=== PATIENT | male | born 1940 | race Caucasian/White ===

== ENCOUNTER 2018-12-03 14:12 | Observation (INO) | payer MEDICARE, OTHER ==
[2018-12-03] MEDS ORDERED: Sodium Chloride 0.9% 500 ML 500 ML IV SCH (15:30)
[2018-12-03 16:24] LABS: ABO TYPING O; Antibody Screen NEGATIVE (NEGATIVE); RH TYPING POSITIVE
[2018-12-03] MEDS ORDERED: TYLENOL 325 MG PO PRN (16:45)
[2018-12-03] MEDS ORDERED: Colace 100 MG PO PRN (16:45)
[2018-12-03] MEDS ORDERED: Sodium Chloride 0.9% 10 ML FLUSH Syringe IV PRN (16:45)
[2018-12-03] MEDS ORDERED: Tessalon Perles 100 MG PO PRN ×2 (18:00→18:10)
[2018-12-03] MEDS ORDERED: Ambien 5 MG Tablet PO PRN (21:07)
[2018-12-03] MEDS ORDERED: HYTRIN 1 MG PO SCH (22:00)
[2018-12-03] MEDS ORDERED: Protonix 40MG Tablet PO SCH (22:00)
[2018-12-03] MEDS: Sodium Chloride 0.9% 10 ML FLUSH Syringe IV SCH (23:00)
[2018-12-04 00:49] LABS: Hematocrit 26.9 % (42-50); Hemoglobin 8.4 gm/dl (12.5-18.0)
[2018-12-04] MEDS: Sodium Chloride 0.9% 10 ML FLUSH Syringe IV SCH (06:52)
[2018-12-04 07:28] VITALS: BP 120/67; PULSE 88; O2SAT 96
--- NOTE | 2018-12-04 08:16 | CONS ---
CONSULT DATE: 12/03/2018 REASON FOR CONSULT: Anemia and thrombocytopenia unclear etiology. HISTORY: Elkin Maravilla is a 78 year-old white male with history of benign essential hypertension on medications. The patient had been doing fine until recently. He started feeling tired, weak and getting worse for the last few months. The patient had a blood test done today on 12/03/2018 with white blood cell 9.3, hemoglobin 7, MCV 95 and PLT count 55,000. Absolute neutrophil count is 3.17, lymphocytes 55%, neutrophils 34%, monocytes 10%, nucleated red blood cells 2%, atypical lymphocytes 1%. Sodium 136, potassium 3.9, BUN 19, creatinine 0.9, calcium 8.9, glucose 102, total iron 181. Iron saturation 65%. AST 24, ALT 16, alkaline phosphatase 55. Albumin 3.9, total protein 7.3. Vitamin B12 400. Folic acid 13. TSH 1.3. The patient had a chest x-ray show nonacute hyperinflated chest. The patient was brought to the hospital for blood transfusion. REVIEW OF SYSTEMS: The patient is tired and weak. He denies any nausea, vomiting, diarrhea, constipation, urinary problem, bleeding, fever, chills, sore throat, headache, blurring of vision. The patient denies any black stools. The patient denies any weight loss. No personal history of cancer in the past. PAST MEDICAL HISTORY: Hypertension. Benign essential hypertension. Hypercholesterolemia. PAST SURGICAL HISTORY: Appendectomy. ALLERGIES: NKDA. FAMILY HISTORY: No history of cancer in the family. Noncontributory at this time. PHYSICAL EXAMINATION: Well developed, well nourished, alert, awake, oriented, pleasant, cooperative, not in distress. SKIN: No cyanosis. No clubbing. No pallor. NECK: Supple. No raise in JVD. LUNGS: Bilaterally clear. HEART: Normal heart sounds. ABDOMEN: Soft, bowel sounds present. EXTREMITIES: No edema. PRICING CLERK: Nonfocal. IMPRESSION: 1) Normocytic anemia. Hemoglobin 7 gm. 2) Thrombocytopenia. Platelets around 50,000. 3) Normal iron profile, B12 and TSH levels. PLAN: The patient has never had a colonoscopy in the past. I discussed with the patient about the anemia and thrombocytopenia, the differential diagnosis including whether the patient has any hemolytic anemia or chronic idiopathic thrombocytopenic purpura combination. The patient's bone marrow pathology including myelodysplastic syndrome and other possibilities including leukemia were discussed. I discussed about the further management including bone marrow aspiration and biopsy to rule out underlying bone marrow pathology. At this time I agree with blood transfusion. Once the patient is stabilized and the patient comes to our office as outpatient I will consider doing the bone marrow aspiration and biopsy. The patient and the patient's understood and their questions were answered. I agree with the blood transfusion. Follow up with me in my office if possible tomorrow and I will consider doing the bone marrow aspiration and biopsy. Thank you very much, Dr. Mendiola, for allowing me to take care of your patient. If you have any questions do not hesitate to call me.
--- NOTE | 2018-12-04 08:26 | PCM.DCORD ---
- Discharge Discharge Date: 12/04/18 Disposition: Home, Self-Care Condition: Fair Prescriptions: Continue levoFLOXacin [Levofloxacin] 500 mg PO DAILY Terazosin HCl 1 mg [Hytrin 1 mg] 2 mg PO HS Omeprazole 20 mg PO HS Benzonatate [Tessalon Perle] 100 - 200 mg PO TIDPRN PRN PRN Reason: Cough Discontinued Benazepril/Hydrochlorothiazide [Benazepril-Hctz 20-12.5 mg Tab] 1 each PO HS Additional Instructions: Go straight to Dr. Lopez's office today for bone marrow biopsy. Return to clinic or ER if bleeding, shortness of breath or any other concerns. Follow up with: IVAN RINALDI [Primary Care Provider] - 1 Week KARIN LOPEZ [COURTESY STAFF] - 1 Week
[2018-12-04] MEDS ORDERED: Levofloxacin 500 MG Tablet PO SCH (10:00)
--- NOTE | 2018-12-04 10:26 | SSS ---
ADMISSION DIAGNOSES: 1) Anemia. 2) Thrombocytopenia. 3) Dyspnea. 4) Cough. DISCHARGE DIAGNOSES: 1) ANEMIA. 2) THROMBOCYTOPENIA. 3) DYSPNEA. 4) COUGH. 5) HYPERTENSION. HISTORY OF PRESENT ILLNESS: This is a 78 year-old patient who presented to my office on 12/03/2018. It was the first time that I had ever seen him. He reported that he has been sick for approximately six weeks. He was seen at [facility] on 10/20/2018, 11/06/2018, 11/18/2018 and 11/26/2018. He reports that on one of those visits he had some sores in his nose, boils and a sore throat as well as a cold and a fever. He has had a deep cough. He states that he had to sleep sitting up at night due to the cough. He has felt more weak. He has been short of breath with exertion. His reports he had been trying to sell his house and move within 30 days and this had run him down. He had been on Augmentin that was started on 11/06/2018. He still feels like he has an infection in the right cheek bone or perhaps a tooth is infected. He had a fever up to 101F in the past five days. He had a history of leukopenia, anemia and thrombocytopenia on a CBC April 2018. They asked him to have a colonoscopy at that time to screen for colon cancer but he had not followed through with this. He reports he has not had much of an appetite but that has been getting better. This morning after receiving 2 units of blood he states that he does feel a little better. He has only ambulated to the bathroom. In the clinic I had ordered STAT blood work and his hemoglobin came back at 7 and so I called him and made him a direct admission for 2 units of packed red blood cells. Licensed Appraiser, Dr. Torsten Lopez was able to see him the same day of his admission and wanted to have him receive the 2 units of packed red blood cells and be discharged as soon as possible this morning to go to his office for a bone marrow biopsy today and the patient is agreeable to this plan. REVIEW OF SYSTEMS: The patient states his face has felt puffy and that has improved today. He felt fatigued and states it has been hard to hold his eyes open. He reports not sleeping well due to cough and nothing seems to help with the cough. PAST MEDICAL HISTORY: Hypertension, benign prostatic hypertrophy, gastroesophageal reflux disease. PAST SURGICAL HISTORY: Appendectomy. MEDICATIONS: Terazosin 2 mg p.o. q.h.s., levofloxacin 500 mg p daily, omeprazole 20 mg p.o. q.h.s., benzonatate 100 to 200 mg every four hours as needed. ALLERGIES: NKDA. SOCIAL HISTORY: He is engaged to be . A former smoker. He works as a peña and a business analytics specialist. FAMILY HISTORY: Noncontributory. PHYSICAL EXAMINATION: VITAL SIGNS: Temperature current 98.9F, temperature max 100.3F, heart rate 82 to 89, respiratory rate 17 to 18, blood pressure 120/65. Oxygen saturation 95 to 96% on room air. GENERAL: The patient is a pleasant talkative man sitting up in bed in no acute distress. His fianc is at the bedside. CVS: His heart has a regular rate and rhythm. No murmurs, gallops or rubs. CHEST: Clear to auscultation bilaterally. No crackles or wheezes. He has a cough. HEENT: He states he is no longer tender over his right sinus. ABDOMEN: Soft, nontender, nondistended with normal bowel sounds. EXTREMITIES: No clubbing, cyanosis or edema. SKIN: Warm, dry and intact. LABORATORY DATA AND TESTS: In the clinic his hemoglobin was 7.0. His PLT count was also low at 55,000 with 34% neutrophils, 55% lymphocytes, 10% monocytes, 2 nucleated red blood cells, 1 atypical lymphocyte. The pathologist also reviewed the slide. Please see their report. Sodium was 136 otherwise BMP was normal. TSH was normal. Chest x-ray was clear with no acute findings. ASSESSMENT AND PLAN: 1) ANEMIA: The patient was transfused with 2 units of packed red blood cells. Again, Dr. Lopez saw him and he is being discharged today to follow up in his clinic for bone marrow biopsy. 2) THROMBOCYTOPENIA: Follow up with Dr. Lopez for bone marrow biopsy and there are no signs of bleeding. 3) DYSPNEA: Hopefully this will improve with his transfusion. His chest x-ray is clear. 4) COUGH: Will continue with [id number] cough medicine. 5) HYPERTENSION: I held his benazepril during this hospitalization. I am going to have him hold this as an outpatient. FOLLOW UP: He is to follow up with Dr. Lopez today and myself next week.
== END 2018-12-04 09:22 | disposition home or self-care (01) ==
LOC: MED SURG 14:33
PROVIDERS: ADMIT Internal Medicine; ATTEND Internal Medicine
DX: D64.9 Anemia, unspecified (principal); D69.6 Thrombocytopenia, unspecified; R06.00 Dyspnea, unspecified; I10 Essential (primary) hypertension; R53.83 Other fatigue; R05 Cough; Z79.899 Other long term (current) drug therapy
CPT/HCPCS: 36415; 36430; 82272; 85014; 85018; 86850; 86900; 86901; 86922; G0378; P9016; 71046; 80053; 84443; 85025; A9270-GY

== ENCOUNTER 2019-02-13 03:19 | Emergency (ER) | payer MEDICARE, OTHER ==
[2019-02-13 03:33] VITALS: O2SAT 98
[2019-02-13] MEDS ORDERED: Zofran 4 MG/2 ML VIAL IV ONE (03:50)
[2019-02-13] MEDS ORDERED: Catapres 0.1 MG PO ONE (03:50)
[2019-02-13] MEDS ORDERED: Zofran 4 MG/2 ML VIAL ONE (03:55)
[2019-02-13] MEDS ORDERED: Sodium Chloride 0.9% 1000 ML 1,000 ML ONE (03:56)
[2019-02-13] MEDS ORDERED: Catapres 0.1 MG ONE (03:56)
--- NOTE | 2019-02-13 03:58 | ERPHSYRPT ---
- History of Present Illness Time Seen by Provider: 02/13/19 03:46 Source: patient, other (spouse) Exam Limitations: no limitations Patient Subjective Stated Complaint: woke up thinking his nose was running but it was bleeding. 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 has had low platelet count and was told if he starts bleeding to come to the hospital. had 2 units of blood and platelets on saturday, was getting another dose of platelets saturday but had a reaction so didn't finish it. Triage Nursing Assessment: pt amb to tx room without diff. washcloth to nose. left nare with bright red blood noted constant slow ooze. states feels like it is running down back of throat. speech clear, no c/o pain or disc. no injury. spitting out bright red blood from back of throat. Physician History: Pt woke up with nosebleed at 3 AM, denies recent surgery or injury, no vomiting , headaches, fever, or SOB, no chest pain, he has mild cough. He has been treated for AML, given chemotherapy the last time 9 days ago (completed a 7 days course). Timing/Duration: abrupt onset Severity: severe ENT Location: nose Prearrival Treatment: no prearrival treatment Modifying Factors: Improves With: nothing Associated Symptoms: cough Allergies/Adverse Reactions: No Known Drug Allergies Allergy (Unverified 12/03/18 15:28) Home Medications: Omeprazole 20 mg PO HS 12/03/18 [History] Ciprofloxacin [Cipro 500 MG] 500 mg PO BID 02/13/19 [History] Hx Tetanus, Diphtheria Vaccination/Date Given: Yes Hx Influenza Vaccination/Date Given: No Hx Pneumococcal Vaccination/Date Given: No Immunizations Up to Date: Yes - Review of Systems Constitutional: No Symptoms Eyes: No Symptoms Ears, Nose, & Throat: Epistaxis Respiratory: Cough Cardiac: No Symptoms Abdominal/Gastrointestinal: Nausea Genitourinary Symptoms: No Symptoms Musculoskeletal: No Symptoms Skin: No Symptoms Neurological: No Symptoms All Other Systems: Reviewed and Negative - Past Medical History Pertinent Past Medical History: No Neurological History: No Pertinent History ENT History: No Pertinent History Cardiac History: Hypertension Respiratory History: No Pertinent History Endocrine Medical History: No Pertinent History Musculoskeletal History: No Pertinent History GI Medical History: GERD History: No Pertinent History Psycho-Social History: No Pertinent History Male Reproductive Disorders: No Pertinent History Other Medical History: acute myeloid leukemia - Past Surgical History Past Surgical History: Yes Neuro Surgical History: No Pertinent History Cardiac: No Pertinent History Respiratory: No Pertinent History Gastrointestinal: Appendectomy Genitourinary: No Pertinent History Musculoskeletal: No Pertinent History Male Surgical History: No Pertinent History - Social History Smoking Status: Former smoker Drug Use: none Patient Lives Alone: No - Nursing Vital Signs Nursing Vital Signs: Initial Vital Signs Temperature 98.2 F 02/13/19 03:19 Pulse Rate 77 02/13/19 03:19 Respiratory Rate 18 02/13/19 03:19 Blood Pressure 154/91 02/13/19 03:19 O2 Sat by Pulse Oximetry 98 02/13/19 03:19 Pain Scale Pain Intensity 0 - Physical Exam General Appearance: no apparent distress Eye Exam: bilateral eye: normal inspection Nasal Exam: active bleeding (from left nares) Throat Exam: pharynx normal (mild blood smear on the posterior pharyneal wall) Neck Exam: normal inspection, non-tender, supple, trachea midline, No JVD, No lymphadenopathy (R), No lymphadenopathy (L) Cardiovascular/Respiratory Exam: chest non-tender, normal breath sounds, regular rate/rhythm, heart sounds normal, no respiratory distress Abdominal Exam: non-tender, soft Neurologic Exam: alert, oriented x 3, cooperative, normal mood/affect Skin Exam: normal color, warm, dry, No rash, No petechiae SpO2 Interpretation: normal SpO2: 98 O2 Delivery: Room Air Procedures - Additional Procedures Progress: Nasal packing: after cleared nasal passages with blowing, 2 % Lidocain gel injected, and 5.5 cm Rhino racket inserted without difficulty, inflated with 10 ml air, bleeding significantly slowed down, no anterior bleeding noted. - Course Nursing assessment & vital signs reviewed: Yes EKG Interpreted by Me: RATE (83/min), Sinus Rhythm, NORMAL AXIS, NORMAL INTERVALS, NORMAL QRS, Non-specific ST Changes Ordered Tests: Active Orders 24 hr Category Date Time Status Apply Nose Clip STAT Care 02/13/19 03:50 Active EKG-ER Only STAT Care 02/13/19 03:53 Active Epistaxis Set Up STAT Care 02/13/19 03:50 Active IV Insertion STAT Care 02/13/19 03:50 Active Re-Check Vital Signs STAT Care 02/13/19 03:50 Active CBC W DIFF Stat Lab 02/13/19 04:08 Completed CBC W DIFF Stat Lab 02/13/19 06:10 Received CMP Stat Lab 02/13/19 04:08 Completed Manual Differential NC Stat Lab 02/13/19 04:08 Completed PROTIME WITH INR Stat Lab 02/13/19 04:08 Completed PTT Stat Lab 02/13/19 04:08 Completed Medication Summary Generic Name Dose Route Start Last Admin Trade Name Freq PRN Reason Stop Dose Admin Sodium Chloride 1,000 mls @ 100 mls/hr 02/13/19 04:00 02/13/19 04:09 Sodium Chloride 0.9% 1000 Ml IV 03/15/19 03:59 100 mls/hr .Q10H EDD Administration Discontinued Medications Generic Name Dose Route Start Last Admin Trade Name Freq PRN Reason Stop Dose Admin Clonidine 0.1 mg 02/13/19 03:50 02/13/19 04:11 Catapres 0.1 Mg PO 02/13/19 03:51 0.1 mg STAT ONE Administration Clonidine Confirm 02/13/19 03:56 Catapres 0.1 Mg Administered 02/13/19 03:57 Dose 0.1 mg .ROUTE .STK-MED ONE Lidocaine HCl Confirm 02/13/19 04:12 Xylocaine 2% Uro-Jet Administered 02/13/19 04:13 Dose 200 mg .ROUTE .STK-MED ONE Ondansetron HCl 4 mg 02/13/19 03:50 02/13/19 04:10 Zofran 4 Mg/2 Ml Vial IV 02/13/19 03:51 4 mg STAT ONE Administration Ondansetron HCl Confirm 02/13/19 03:55 Zofran 4 Mg/2 Ml Vial Administered 02/13/19 03:56 Dose 4 mg .ROUTE .STK-MED ONE Lab/Rad Data: Laboratory Result Diagrams 02/13/19 04:08 02/13/19 04:08 Laboratory Results 02/13/19 02/13/19 02/13/19 Range/Units 04:08 04:08 04:08 WBC 0.6 L* (4.0-10.5) K/mm3 RBC 2.51 L (4.1-5.6) M/mm3 Hgb 7.8 L (12.5-18.0) gm/dl Hct 24.0 L (42-50) % MCV 95.6 (78-100) fl MCH 31.0 (26-32) pg MCHC 32.5 (32-36) g/dl RDW 18.7 H (11.5-14.0) % Plt Count 5 L* (150-450) K/mm3 Absolute Granulocytes 0.10 L (1.4-6.9) Segmented Neutrophils 15 L (36.-66.) % Band Neutrophils 1 (0.0-2.0) % Lymphocytes (Manual) 82 H (24-44) % Monocytes (Manual) 2 (0.0-12.0) % Nucleated RBCs 2 % Platelet Estimate DECREASED (NORMAL) RBC Morphology ABNORMAL Poikilocytosis 1+ Tear Drop Cells 1+ Ovalocytes 1+ PT 14.3 H (8.83-12.87) SECONDS INR 1.23 (0.8-3.0) APTT 27.5 (24.1-36.1) SECONDS Sodium 140 (137-145) mmol/L Potassium 4.2 (3.5-5.1) mmol/L Chloride 105 (98-107) mmol/L Carbon Dioxide 26 (22-30) mmol/L Anion Gap 12.6 (5-15) MEQ/L BUN 17 (9-20) mg/dL Creatinine 0.73 (0.66-1.25) mg/dL Estimated GFR > 60.0 ML/MIN Glucose 107 H (74-106) mg/dL Calcium 9.0 (8.4-10.2) mg/dL Total Bilirubin 1.70 H (0.2-1.3) mg/dL AST 26 (17-59) U/L ALT 14 (0-50) U/L Alkaline Phosphatase 70 (38-126) U/L Serum Total Protein 6.7 (6.3-8.2) g/dL Albumin 3.7 (3.5-5.0) g/dL - Progress Progress: unchanged, improved Progress Note: 02/13/19 06:29 Platelets: 5, WBC: 0.6, 5.5 cm Rapid Rhino inserted to left nostril, bleeding slowed significant, no anterior bleeding, he still spits of a little blood, ( about 10-15 ml in 1 hour) he is alert and oriented x4, airways are intact, not swallowing blood, started IV saline, given Zofran IV, and Clonidine 0.1 mg PO, we do not have Platelet transfusion available, called [facility] ( Dr Lopez. pt's oncologist) unable to reach, also they do not have ENT surgeon available, could not accept transfer. We called Dr Luna in [facility], discussed his results and current condition, he accepted patient for further treatment, and platelet transfusion. Patient and his informed, they agreed, understood all risks and benefits of his transfer, he has been hemodynamically stable, (BP:125/75,pulse:74/min, O2 sat: 97 % on RA) Discussed with Dr.: Other (DR Luna ED physician in [facility]) Counseled pt/family regarding: lab results, diagnosis - Departure Departure Disposition: Transfer (to [facility] ED) Clinical Impression: Epistaxis, Thrombocytopenia Anemia Qualifiers: Anemia type: other cause Other causes of anemia: other cause, not classified Qualified Code(s): D64.89 - Other specified anemias Condition: Stable Critical Care Time: No Referrals: IVAN RINALDI [Primary Care Provider] - Instructions: Nosebleeds (DC)
[2019-02-13] MEDS ORDERED: Sodium Chloride 0.9% 1000 ML 1,000 ML IV SCH (04:00)
[2019-02-13 04:12] LABS: Hemoglobin 7.8 gm/dl (12.5-18.0); Mean Cell Volume 95.6 fl (78-100); Mean Corpuscular Hgb Concent. 32.5 g/dl (32-36); Red Blood Count 2.51 M/mm3 (4.1-5.6); Red Cell Distribution Width 18.7 % (11.5-14.0)
[2019-02-13] MEDS ORDERED: XYLOCAINE 2% Uro-Jet ONE (04:12)
[2019-02-13 04:18] LABS: White Blood Count 0.6 K/mm3 (4.0-10.5)
[2019-02-13 04:19] LABS: Platelet Count 5 K/mm3 (150-450)
[2019-02-13 04:29] LABS: ALBUMIN 3.7 g/dL (3.5-5.0); ALKALINE PHOSPHATASE 70 U/L (38-126); ANION GAP 12.6 MEQ/L (5-15); BLOOD UREA NITROGEN 17 mg/dL (9-20); CHLORIDE 105 mmol/L (98-107); Carbon Dioxide 26 mmol/L (22-30); Creatinine 1 0.73 mg/dL (0.66-1.25); Glucose 107 mg/dL (74-106); INR 1.23 (0.8-3.0); PROTIME 14.3 SECONDS (8.83-12.87); Potassium 4.2 mmol/L (3.5-5.1); SGOT/AST 26 U/L (17-59); SGPT/ALT 14 U/L (0-50); SODIUM 140 mmol/L (137-145); Total Protein 6.7 g/dL (6.3-8.2)
[2019-02-13 04:32] LABS: PTT 27.5 SECONDS (24.1-36.1)
[2019-02-13 05:14] LABS: BAND 1 % (0.0-2.0); Lymphocytes 82 % (24-44); Monocyte 2 % (0.0-12.0); Neutrophils 15 % (36.-66.); Nucleated Red Blood Cell 2 %; Total Cells Counted 100
[2019-02-13 05:15] LABS: Ovalocytes 1+; Platelet Estimate DECREASED (NORMAL); Poikilocytosis 1+
[2019-02-13 05:16] LABS: Tear Drop Cells 1+
[2019-02-13 05:45] VITALS: BP 102/73
[2019-02-13 06:21] VITALS: PULSE 72
[2019-02-13 06:31] LABS: BASOPHIL % 6.1 % (0.0-0.4); Basophil (Absolute #) 0.03 (0-0.4); Eosinophil (Absolute #) 0 (0-0.5); Granulocyte Absolute (ANC) 0.14 (1.4-6.9); Granulocytes % 28.6 % (36.0-66.0); Hematocrit 22.8 % (42-50); Hemoglobin 7.4 gm/dl (12.5-18.0); Lymphocyte (Absolute #) 0.28 (1.0-4.6); Lymphocytes % 57.1 % (24.0-44.0); Mean Cell Volume 95.4 fl (78-100); Mean Corpuscular Hgb Concent. 32.5 g/dl (32-36); Monocyte (Absolute #) 0.04 (0.0-1.3); Monocytes % 8.2 % (0.0-12.0); Red Blood Count 2.39 M/mm3 (4.1-5.6); Red Cell Distribution Width 18.8 % (11.5-14.0)
[2019-02-13 06:44] LABS: Mean Corpuscular Hemoglobin 30.9 pg (26-32); Platelet Count 2 K/mm3 (150-450); White Blood Count 0.5 K/mm3 (4.0-10.5)
== END 2019-02-13 06:50 | disposition short-term general hospital (02) ==
LOC: ED 03:19
DX: R04.0 Epistaxis (principal); D69.6 Thrombocytopenia, unspecified; D64.89 Other specified anemias; I10 Essential (primary) hypertension; K21.9 Gastro-esophageal reflux disease without esophagitis; Z85.6 Personal history of leukemia
CPT/HCPCS: 36415; 80053; 85025; 85610; 85730; 93005; 96360; 96374; 99285; J2405; A9270-GY